=== PATIENT | male | born 1960 | race Caucasian/White ===

== ENCOUNTER → 2016-11-01 | Outpatient (CLI) | payer OTHER ==
[~2016-11-01] MED LIST: ALFU10TA2 PO; AMT10 PO; LANS30CA12 PO; MULT-884 PO
[2016-11-01 19:42] LABS: FREE PSA 0.43 ng/ml; PROSTATE SPECIFIC ANTIGEN 3.94 ng/ml (0.000-4.000)
== END | disposition home or self-care (01) ==
LOC: C.LAB 18:27
PROVIDERS: ATTEND Urology
DX: R97.20 Elevated prostate specific antigen [PSA] (principal)

== ENCOUNTER → 2017-01-26 | Outpatient (CLI) | payer OTHER ==
[~2017-01-26] MED LIST changes: -ALFU10TA2 PO; +ALFU10TA30 PO
== END | disposition home or self-care (01) ==
LOC: C.PATHSPEC 13:13
PROVIDERS: ATTEND Urology
DX: C61 Malignant neoplasm of prostate (principal); R97.20 Elevated prostate specific antigen [PSA]; N41.1 Chronic prostatitis

== ENCOUNTER → 2017-02-09 | Outpatient (CLI) | payer OTHER ==
[2017-02-09 12:44] LABS: BLOOD UREA NITROGEN 15 mg/dl (7-18)
== END | disposition home or self-care (01) ==
LOC: C.LABPBG 09:24
PROVIDERS: ATTEND Urology
DX: C61 Malignant neoplasm of prostate (principal)

== ENCOUNTER → 2017-02-15 | Outpatient (CLI) | payer OTHER ==
[~2017-02-15] MED LIST changes: -ALFU10TA30 PO; +OPTIRAY 320 IV PRN
--- NOTE | 2017-02-15 13:31 | DIAGNOSTIC IMAGING REPORT ---
ABD/PELVIS IV AND ORAL CONT CLINICAL HISTORY: 56 years-old Male presenting with C61 Prostate cancerNO PRECERT IS NOT REQUIRED PER R.J. @ [employer] . TECHNIQUE: Multidetector CT of the abdomen and pelvis was performed after the administration of oral and intravenous contrast. IV contrast: 94 mL of Optiray 320. A dose lowering technique was used consistent with the principles of ALARA (as low as reasonably achievable). COMPARISON: None. CT DOSE (mGy.cm): The estimated cumulative dose is 818.78 mGycm. FINDINGS: Drag Down topogram: Unremarkable. Lung bases: Solid ovoid 6 mm fissural nodule in the left lower lobe (series 3 image 4). Lung bases otherwise clear. Normal heart size. No pericardial or pleural effusion. Liver: Normal morphology. Scattered well-defined hypodensities, indeterminate but likely hepatic cysts or hamartomas. Patent hepatic vasculature. Biliary: No intrahepatic or extrahepatic biliary ductal dilatation. Normal gallbladder. Pancreas: Normal. Spleen: Normal. Adrenal glands: Normal. Kidneys and ureters: Normal. No hydronephrosis. Bladder: Normal. Pelvic organs: Prostate enlargement likely secondary to benign prostatic hyperplasia. Bowel: Normal. No bowel obstruction. Peritoneal cavity: No free fluid or intraperitoneal gas. Lymph nodes: Subcentimeter lymph nodes noted in the upper abdomen. No pathologically enlarged lymph node in the abdomen or pelvis. Vasculature: Aorta and IVC patent and normal in caliber. Abdominal wall: Bilateral varicoceles suggested. Musculoskeletal: Benign hemangioma noted in the L1 vertebral body. Note is short of osseous lesion. Central radiolucency in the lower sternum is indeterminate (series 3 image 1). IMPRESSION: 1. No convincing evidence of metastatic disease in abdomen or pelvis. 2. Indeterminate radiolucent sternal lesion. Correlate with findings on nuclear medicine bone scan to be performed later today. 3. Solid ovoid 6 mm fissural nodule in the left lower lobe. Follow-up per [employer] 2017 recommendations below. This is felt unlikely to represent a metastatic lesion. Please refer to below summary of Fleischner Society 2017 recommendations for follow-up of incidental CT nodules (Matias Yeboah et al. Guidelines for management of incidental pulmonary nodules detected on CT images: From the Fleischner Society 2017. Radiology 2017; 284: 228-243.) SOLID NODULES Single nodule; size < 6 mm * Low risk patients: No routine follow-up * High risk patients: Optional CT at 12 months Single nodule; size 6-8 mm * Low risk patients: CT at 6-12 months, then consider CT at 18-24 months * High risk patients: CT at 6-12 months, then at 18-24 months Single nodule; size > 8 mm * Either low or high risk patients: Considered CT at 3 months, PET/CT, or tissue sampling Multiple nodules; size < 6 mm * Low risk patients: No routine follow up * High risk patients: Optional CT at 12 months Multiple nodules; size 6-8 mm * Low risk patients: CT at 3-6 months, then consider CT at 18-24 months * High risk patients: CT at 3-6 months, then at 18-24 months Multiple nodules; size > 8 mm * Low risk patients: CT at 3-6 months, then consider at 18-24 months * High risk patients: CT at 3-6 months, then at 18-24 months Note: These guidelines apply to incidental nodules. These guidelines do not apply to patients younger than 35 years, immunocompromised patients, or patients with cancer. * Low risk patients: Minimal or absent history of smoking and/or other known risk factors * High risk patients: History of smoking, exposure to other carcinogens, emphysema, fibrosis, upper lobe location, family history of lung cancer, etc. * If a nodule up to 8 mm is partly solid or is ground glass, further follow-up is required after 24 months to exclude possible slow growing adenocarcinoma. SUBSOLID NODULES Single ground-glass nodule * Nodule size < 6 mm: No routine follow-up * Nodule size > or = 6 mm: CT at 6-12 months to confirm persistence, then CT every 2 years until 5 years Single part-solid nodule * Nodule size < 6 mm: No routine follow-up * Nodules size > or = 6 mm: CT at 3-6 months to confirm persistence. If unchanged and solid component remains < 6 mm, annual CT should be performed for 5 years Multiple nodules * Nodule size < 6 mm: CT at 3-6 months. If stable, consider CT at 2 and 4 years. * Nodules size > or = 6 mm: CT at 3-6 months. Subsequent management based on the most suspicious nodule(s) Electronically signed by: Roel Del Real M.D. 02/15/2017 1:30 PM Dictated Date/Time: 02/15/2017 1:24 PM
--- NOTE | 2017-02-15 15:59 | DIAGNOSTIC IMAGING REPORT ---
WHOLE-BODY NUCLEAR BONE SCAN CLINICAL HISTORY: Prostate cancer. COMPARISON STUDY: Abdominal CT dated 02/15/2017. TECHNIQUE: Three hours following the IV administration of 22.2 mCi of technetium 99m MDP, whole body nuclear bone scan was performed in the anterior and posterior projections. FINDINGS: There is no abnormal osseous tracer deposition identified typical in appearance for bony metastatic disease. Typically degenerative uptake is identified in the shoulders, knees, ankles, and feet. There is expected excreted activity within the renal collecting system and bladder. IMPRESSION: There is no abnormal tracer deposition identified typical in appearance for osseous metastatic disease. Electronically signed by: Anirudh Faye M.D. 02/15/2017 3:58 PM Dictated Date/Time: 02/15/2017 3:54 PM
== END ==
LOC: C.CTS 11:54
PROVIDERS: ATTEND Urology
DX: C61 Malignant neoplasm of prostate (principal)

== ENCOUNTER 2017-12-24 12:33 | Emergency (ER) | payer OTHER ==
[~2017-12-24] VITALS: Ht 177.8 cm; Wt 91.2 kg
[~2017-12-24 12:33] MED LIST changes: +ALFU10TA2 PO; -MULT-884 PO; -OPTIRAY 320 IV PRN
[2017-12-24 12:44] VITALS: TEMP 36.6; Ht 177.8 cm; Wt 91.2 kg
[2017-12-24] MEDS ORDERED: SODIUM CHLORIDE 0.9% 1000ML 1,000 ML IV STA (13:16)
[2017-12-24] MEDS ORDERED: MoRPHine SULFATE 4 MG/ML 1 ML CARP\\VIAL IV STA (13:16)
[2017-12-24] MEDS ORDERED: KETOROLAC TROMETHAMINE 30 MG/ML VIAL IV STA (13:16)
--- NOTE | 2017-12-24 13:25 | EMERGENCY ROOM VISIT NOTE ---
ED Visit Note First contact with patient: 12:56 CHIEF COMPLAINT: Right facial pain and swelling, dental abscess HISTORY OF PRESENTING ILLNESS: This is a 57-year-old male who presents to the emergency department with complaint of right-sided facial swelling and pain that started 2 days ago and has been getting progressively worse. He states he started having a sore throat today and feels that his throat is tight. He feels like the whole side of his face and part of his mouth is becoming swollen and more painful as well as pain and swelling extending down into his jaw and neck. He has associated headaches with this. He saw his dentist 2 days ago and had x-rays done, was told that he had a dental abscess and was started on amoxicillin which he has been taking 4 times a day, he has had a total of 9 doses and has not improved. He is also been taking [place] and ibuprofen without relief. He is scheduled to have a root canal of the infected tooth this Monday, but he feels that his symptoms got significantly worse today and was worried about the swelling and worsening pain. He is not diabetic. He is not a smoker. He denies any previous history of dental abscess or facial cellulitis. He denies any fevers or chills. He has had some associated nausea and poor appetite. He denies any vision changes, neck pain or stiffness. He denies any chest pain, shortness of breath, dizziness, syncope, unusual rash. REVIEW OF SYSTEMS: A complete 10 point review of systems was reviewed with the patient with pertinent positives and negatives as per history of present illness. All else were negative. PAST MEDICAL HISTORY: Reviewed in chart, see problem list below. SOCIAL HISTORY: Lives at home. He denies tobacco use. ALLERGIES: No known allergies. PHYSICAL EXAM: CONSTITUTIONAL: Pleasant and cooperative. No acute distress, but appears uncomfortable and in pain. Mildly dehydrated, but otherwise well appearing and well nourished. HEENT: Normocephalic, atraumatic. Pupils equal, round and reactive to light, EOMI. TMs normal bilaterally. Pharynx is not erythematous, edematous, or exudative. No trismus. No uvular deviation. Gingival swelling and tenderness about the right lower incisors, no palpable abscess. Submandibular tenderness and swelling on the right, with some mild right-sided anterior cervical adenopathy. Mild swelling and tenderness to palpation extending along the right jaw to the temporal bone. NECK: Supple, full active range of motion without discomfort. RESPIRATORY: Clear to auscultation bilaterally with no wheezing, crackles, rhonchi or stridor. Equal expansion bilaterally. CARDIOVASCULAR: Regular rate and rhythm with no murmurs, rubs or gallops. Normal peripheral perfusion. No edema. GASTROINTESTINAL: Soft, nontender, nondistended. No palpable masses or HSM. Bowel sounds present in all quadrants. MUSCULOSKELETAL: Full range of motion of all joints without discomfort. INTEGUMENTARY: No rash or other significant dermatologic conditions noted. NEUROLOGIC: Alert and oriented X 4 with normal affect. Cranial nerves II-XII grossly intact, no facial droop. No pronator drift. No focal neurologic deficits noted. Normal strength and sensation in all 4 extremities. Normal speech. Normal gait observed. ED COURSE AND MEDICAL DECISION MAKING: CC: Patient presenting with complaint of right facial pain and swelling, dental abscess DIFFERENTIAL DIAGNOSIS: Includes, but not limited to dental abscess, gingivitis , facial cellulitis, deep space abscess, Balta's angina, among others INTERPRETATION OF LABS: No leukocytosis, no anemia, normal platelets, no significant electrolyte abnormalities, normal renal function, normal liver enzymes. IMAGING: CT OF THE NECK WITH CONTRAST CLINICAL HISTORY: Right-sided facial pain and swelling. Known dental abscess. COMPARISON STUDY: No previous studies for comparison. TECHNIQUE: Axial images of the neck were obtained following intravenous injection of 93 cc Optiray 320 IV. FINDINGS: Visualized portions of the intracranial contents are unremarkable. Lung apices are clear. Epiglottis is normal. There is no cervical lymphadenopathy. Mild tonsillar enlargement results in mild airway narrowing. No cervical lymphadenopathy is present. Note is made of a periapical lucency of the right maxillary first bicuspid. There is mild adjacent infiltration with no abscess. Evaluation is difficult given streak artifact from numerous dental amalgams. No soft tissue gas is present. There is no significant infiltration within the floor of the mouth. IMPRESSION: 1. Periapical lucency of the right maxillary first bicuspid. Mild adjacent infiltration consistent with cellulitis. No adjacent soft tissue abscess. 2. Mild tonsillar hypertrophy which results in mild airway narrowing. MEDICATION RECONCILIATION: I attest that I have personally reviewed the patient 's current medication list. INITIAL VITAL SIGNS REVIEW: I reviewed the patient's initial vital signs and interpret them as follows: T: Afebrile; BP: Hypertensive; HR: Within normal limits; RR: Within normal limits; Pulse Ox: Within normal limits on room air. Blood pressure screening: The patient was found to have an elevated blood pressure, which was felt to be situational. SUMMARY: Patient was evaluated at bedside, history and physical exam performed. Patient is alert and oriented, in no acute distress but does appear uncomfortable and in pain, resting in stretcher. Mild swelling along the right jaw appreciated on exam, very tender to palpation. There is some tenderness and swelling in the submandibular area as well. Patient does not have any respiratory distress, airway is patent with no wheezing or stridor. Vitals are stable and he is afebrile. Given that he has had 9 doses of amoxicillin without improvement, I suspect this antibiotic is not providing adequate coverage for his infection. IV clindamycin ordered. Orders were placed at bedside for labs, IV placement and IV fluids for hydration , IV morphine and IV Toradol for pain, CT soft tissue neck with IV contrast to evaluate for deep space infection and rule out Balta's angina. Patient discussed with Dr. Mahoney, who agrees with my assessment and plan. Labs and imaging reviewed as above, CT noting periapical abscess of the first bicuspid consistent with the patient's history and mild adjacent cellulitis. No airway compromise. Patient reassessed multiple times throughout ED stay, he has remained stable, afebrile, and is feeling much improved. He states his pain is nearly resolved after treatment today. Patient was updated on all results and plan for discharge, he was encouraged to follow closely with his dentist and oral surgeon. Rx for clindamycin sent to the pharmacy. Patient was provided with a take-home pack of oxycodone 5 mg tablets for breakthrough severe pain. He was educated regarding all prescribed medications. Patient was also given strict return precautions should his symptoms worsen, he verbalized understanding. Patient was discharged home in stable condition and ambulatory. (Connie Ochoa CRNP) First contact with patient: 12:56 (Abe Mahoney M.D.) Problem List Medical Problems: (1) Kidney stones Status: Resolved (Abe Mahoney M.D.) Current/Historical Medications Scheduled Amitriptyline Hcl (Elavil), 20 MG PO HS Clindamycin Hcl (Cleocin), 300 MG PO QID Allergies Coded Allergies: No Known Allergies (Verified , 10/22/14) Vital Signs Date Time Temp Pulse Resp B/P (MAP) Pulse Ox O2 Delivery O2 Flow Rate FiO2 12/24/17 17:05 68 18 125/101 98 Room Air 12/24/17 14:33 66 14 144/75 98 Room Air 12/24/17 12:44 36.6 71 18 140/89 98 Room Air (Abe Mahoney M.D.) Laboratory Results 12/24/17 13:30 Red Blood Count 5.00, Mean Corpuscular Volume 92.8, Mean Corpuscular Hemoglobin 32.8, Mean Corpuscular Hemoglobin Concent 35.3, Mean Platelet Volume 9.8, Neutrophils (%) (Auto) 78.0, Lymphocytes (%) (Auto) 13.9, Monocytes (%) (Auto) 7.5, Eosinophils (%) (Auto) 0.2, Basophils (%) (Auto) 0.1, Neutrophils # (Auto) 7.67, Lymphocytes # (Auto) 1.37, Monocytes # (Auto) 0.74, Eosinophils # (Auto) 0.02, Basophils # (Auto) 0.01 12/24/17 13:30 Test 12/24/17 13:30 12/24/17 13:37 White Blood Count 9.84 K/uL (4.8-10.8) Red Blood Count 5.00 M/uL (4.7-6.1) Hemoglobin 16.4 g/dL (14.0-18.0) Hematocrit 46.4 % (42-52) Mean Corpuscular Volume 92.8 fL (80-100) Mean Corpuscular Hemoglobin 32.8 pg (25-34) Mean Corpuscular Hemoglobin Concent 35.3 g/dl (32-36) Platelet Count 199 K/uL (130-400) Mean Platelet Volume 9.8 fL (7.4-10.4) Neutrophils (%) (Auto) 78.0 % Lymphocytes (%) (Auto) 13.9 % Monocytes (%) (Auto) 7.5 % Eosinophils (%) (Auto) 0.2 % Basophils (%) (Auto) 0.1 % Neutrophils # (Auto) 7.67 K/uL (1.4-6.5) Lymphocytes # (Auto) 1.37 K/uL (1.2-3.4) Monocytes # (Auto) 0.74 K/uL (0.11-0.59) Eosinophils # (Auto) 0.02 K/uL (0-0.5) Basophils # (Auto) 0.01 K/uL (0-0.2) RDW Standard Deviation 43.5 fL (36.4-46.3) RDW Coefficient of Variation 12.8 % (11.5-14.5) Immature Granulocyte % (Auto) 0.3 % Immature Granulocyte # (Auto) 0.03 K/uL (0.00-0.02) Est Creatinine Clear Calc Drug Dose 79.9 ml/min Estimated GFR () 82.0 Estimated GFR (Non- 70.8 BUN/Creatinine Ratio 9.6 (10-20) Calcium Level 9.0 mg/dl (8.5-10.1) Total Bilirubin 0.9 mg/dl (0.2-1) Aspartate Amino Transf (AST/SGOT) 14 U/L (15-37) Alanine Aminotransferase (ALT/SGPT) 18 U/L (12-78) Alkaline Phosphatase 96 U/L (45-117) Total Protein 7.9 gm/dl (6.4-8.2) Albumin 4.2 gm/dl (3.4-5.0) Globulin 3.7 gm/dl (2.5-4.0) Albumin/Globulin Ratio 1.1 (0.9-2) Chemistry Specimen Hemolysis Bedside Hemoglobin 16.7 g/dl (14.0-18.0) Bedside Hematocrit 49 % (42-52) Bedside Sodium 139 mEq/L (135-144) Bedside Potassium 4.1 mEq/L (3.3-5.0) Bedside Chloride 100 mEq/L (101-112) Bedside Total CO2 26 mEq/l (24-31) Anion Gap 18.0 mmol/L (16-25) Bedside Blood Urea Nitrogen 11 mg/dl (7-18) Bedside Creatinine 1.0 mg/dl (0.6-1.3) Bedside Glucose (other) 96 mg/dl (70-99) Bedside Ionized Calcium (William) 1.21 mmol/l (1.12-1.32) (Abe Mahoney M.D.) Medications Administered Medications (Trade) Dose Ordered Sig/Bill Route Start Time Stop Time Status Last Admin Dose Admin Morphine Sulfate (MoRPHine SULFATE INJ) 4 mg NOW STAT IV 12/24/17 13:16 12/24/17 13:20 DC 12/24/17 13:51 4 MG Ketorolac Tromethamine (Toradol Inj) 15 mg NOW STAT IV 12/24/17 13:16 12/24/17 13:20 DC 12/24/17 13:50 15 MG Clindamycin Phosphate (Cleocin 600mg/ 54ml D5W) 600 mg ONE ONCE IV 12/24/17 13:30 12/24/17 13:31 DC 12/24/17 13:51 600 MG Sodium Chloride 1,000 ml @ 999 mls/hr Q1H1M STAT IV 12/24/17 13:16 12/24/17 14:16 DC 12/24/17 13:48 999 MLS/HR Clindamycin HCl (Cleocin 150MG Home Pack) 1 homepack UD ONCE PO 12/24/17 17:00 12/24/17 17:01 DC 12/24/17 17:05 1 HOMEPACK Oxycodone HCl (Roxicodone Immediate Rel 5MG Home Pack) 1 homepack UD ONCE PO 12/24/17 17:00 12/24/17 17:01 DC 12/24/17 17:05 1 HOMEPACK (Abe Mahoney M.D.) Departure Information Impression Primary Impression: Dental abscess Additional Impression: Facial cellulitis Dispostion Home / Self-Care Condition GOOD Prescriptions Clindamycin Hcl (CLEOCIN) 300 Mg Cap 300 MG PO QID for 10 Days, #38 CAP Prov: Connie Ochoa CRNP 12/24/17 Referrals Laney Roberts M.D. (PCP) Patient Instructions ED Dental Abscess Facial Cellulitis, [facility] Additional Instructions You were seen in the Emergency Department for your dental pain and facial cellulitis. You have been prescribed clindamycin to be taken 4 times a day for 10 days. This medication is an antibiotic. Stop this medication and contact a medical provider if you were to develop any significant adverse side effects including: wheezing, shortness of breath, passing out, vomiting, or a diffuse rash. Always take antibiotics as directed and COMPLETE the ENTIRE course regardless of the improvement of your symptoms. You have been provided with a few tablets of oxycodone 5 mg to be used 1 tablet every 6 hours as needed for SEVERE pain. This medication is to be used for breakthrough pain when [id number] pain medication is insufficient. Oxycodone is a narcotic. Do not drive, operate machinery, or drink alcohol while you are taking this medication. For pain control, you can use the following eiib-nee-[id number] medicines (if >12 yo): - Regular strength (325mg/tab) Tylenol (acetaminophen) 2 tabs every 6 hours as needed. Do not exceed 10 tablets in a 24 hour period. Avoid taking more than 3 grams (3000 mg) of Tylenol per day. This includes any other sources of acetaminophen you may take on a regular basis. - Regular strength (200 mg/tab) Advil (ibuprofen) 3 tabs every 6 hours as needed. Do not exceed a dose of 2400 mg per day. - For best results, alternate between Tylenol and Advil every 3 hours. Apply warm compresses to the area to help with pain and also to help improve the infection. Follow up with your dentist in 1-2 days for recheck, or sooner for worsening symptoms. Call tomorrow to discuss your plans for root canal surgery. Please return to the emergency department for any difficulty breathing, wheezing , muffled voice, signs of worsening infection of the wound including: increased pain, significantly worsening swelling, foul discharge in the mouth, spreading redness, fevers/chills/feeling ill, or any other concerns. Work Instructions Return To Work: 2 days (Connie Ochoa CRNP) Problem Qualifiers
[2017-12-24] MEDS ORDERED: OPTIRAY 320 IV PRN (13:30)
[2017-12-24] MEDS ORDERED: CLINDAMYCIN 600 MG/54 ML D5W IV ONE (13:30)
[2017-12-24] MEDS ORDERED: AMIT10TA6 PO (13:37)
[2017-12-24 13:42] LABS: BASO % 0.1 %; BASO ABS # 0.01 K/uL (0-0.2); EOS % 0.2 %; EOS ABS # 0.02 K/uL (0-0.5); HEMATOCRIT 46.4 % (42-52); HEMOGLOBIN 16.4 g/dL (14.0-18.0); IG# 0.03 K/uL (0.00-0.02); LYMPH % 13.9 %; LYMPH ABS # 1.37 K/uL (1.2-3.4); MEAN CELL VOLUME 92.8 fL (80-100); MEAN CORPUSCULAR HEMOGLOBIN 32.8 pg (25-34); MEAN CORPUSCULAR HGB CONC 35.3 g/dl (32-36); MEAN PLATELET VOLUME 9.8 fL (7.4-10.4); MONO % 7.5 %; MONO ABS # 0.74 K/uL (0.11-0.59); NEUT ABS # 7.67 K/uL (1.4-6.5); PLATELET COUNT 199 K/uL (130-400); RED CELL DISTRIBUTION WIDTH CV 12.8 % (11.5-14.5); RED CELL DISTRIBUTION WIDTH SD 43.5 fL (36.4-46.3); WHITE BLOOD COUNT 9.84 K/uL (4.8-10.8)
[2017-12-24 13:50] LABS: ISTAT IONIZED CALCIUM 1.21 mmol/l (1.12-1.32); ISTAT POTASSIUM 4.1 mEq/L (3.3-5.0)
[2017-12-24 14:16] LABS: ALBUMIN 4.2 gm/dl (3.4-5.0); CREATININE 1.13 mg/dl (0.60-1.40); POTASSIUM 4.3 mmol/L (3.5-5.1); TOTAL PROTEIN 7.9 gm/dl (6.4-8.2)
--- NOTE | 2017-12-24 16:32 | DIAGNOSTIC IMAGING REPORT ---
CT OF THE NECK WITH CONTRAST CLINICAL HISTORY: Right-sided facial pain and swelling. Known dental abscess. COMPARISON STUDY: No previous studies for comparison. TECHNIQUE: Axial images of the neck were obtained following intravenous injection of 93 cc Optiray 320 IV. FINDINGS: Visualized portions of the intracranial contents are unremarkable. Lung apices are clear. Epiglottis is normal. There is no cervical lymphadenopathy. Mild tonsillar enlargement results in mild airway narrowing. No cervical lymphadenopathy is present. Note is made of a periapical lucency of the right maxillary first bicuspid. There is mild adjacent infiltration with no abscess. Evaluation is difficult given streak artifact from numerous dental amalgams. No soft tissue gas is present. There is no significant infiltration within the floor of the mouth. IMPRESSION: 1. Periapical lucency of the right maxillary first bicuspid. Mild adjacent infiltration consistent with cellulitis. No adjacent soft tissue abscess. 2. Mild tonsillar hypertrophy which results in mild airway narrowing. Electronically signed by: Richie Fitzpatrick M.D. 12/24/2017 3:07 PM Dictated Date/Time: 12/24/2017 3:00 PM
[2017-12-24] MEDS ORDERED: CLIN300C2 PO ×2 (16:47→17:16)
[2017-12-24] MEDS ORDERED: CLINDAMYCIN 150MG HOME PACK PO ONE (17:00)
[2017-12-24] MEDS ORDERED: OXYCODONE IR HOME PACK PO ONE (17:00)
[2017-12-24 17:05] VITALS: BP 125/101; PULSE 68; O2SAT 98
== END 2017-12-24 17:15 | disposition home or self-care (01) ==
LOC: C.EDB 12:34
DX: K04.7 Periapical abscess without sinus (principal); L03.211 Cellulitis of face; E86.0 Dehydration; Z79.899 Other long term (current) drug therapy